=== PATIENT | male | born 1940 | race Caucasian/White ===

== ENCOUNTER → 2016-07-22 | Outpatient (CLI) | payer MEDICARE ==
[~2016-07-22] MED LIST: CARV3.125 PO; FURO1TAB93 PO; KLOR20TA6 PO; METF500 PO; OMEP20TA PO; RAMI2.5C29 PO; ZOCO40TA PO
--- NOTE | 2016-07-23 10:30 | RSPPFT ---
DATE OF PROCEDURE: 07/22/16 COMMENTS: Spirometry with FVC of 2.1 predicted 3.6, FEV1 of 1.5 predicted 2.4, FEV1/FVC ratio 73% predicted 66%. Lung volumes show a minimal decrease in the TLC at 4.7 predicted 6.0. IMPRESSION: On the basis of the above, patient has a mild obstructive lung defect and a mild restrictive component with no response to acutely inhaled bronchodilator. DLCO is 65% of predicted.
== END ==
LOC: HRSP 07:56
PROVIDERS: ATTEND Internal Medicine Pulmonary Disease
DX: R06.02 Shortness of breath (principal)
CPT/HCPCS: 94060; 94620; 94726; 94729

== ENCOUNTER → 2017-08-18 | Outpatient (CLI) | payer MEDICARE ==
--- NOTE | 2017-08-19 08:14 | RSPPFT ---
DATE OF PROCEDURE: 08/18/17 COMMENTS: Spirometry with FVC of 2.1 predicted 3.1, FEV1 of 1.5 predicted 2.4, FEV1/FVC ratio 72% predicted 79%. Lung volumes are basically within the predicted range. The RV and RV/TLC are increased. DLCO is 50% of predicted. IMPRESSION: On the basis of the above, patient has a mild obstructive lung defect with FEF 25-75 of 1.0 predicted 2.4.
== END ==
LOC: HRSP 09:49
PROVIDERS: ATTEND Internal Medicine Pulmonary Disease
DX: J98.4 Other disorders of lung (principal)
CPT/HCPCS: 94060; 94618; 94726; 94729